=== PATIENT | female | born 1995 | race African-American/Black ===

== ENCOUNTER 2019-04-07 13:30 | Emergency (ER) | payer MEDICAID ==
[~2019-04-07] VITALS: Ht 160 cm; Wt 48.0 kg
[2019-04-07] MEDS ORDERED: LIDOCAINE HCL/PF 1% 10 MG/ML 5ML VIAL IJ ONE (14:15)
[2019-04-07] MEDS ORDERED: ACETAMINOPHEN 325MG TABLET PO ONE (14:15)
[2019-04-07] MEDS ORDERED: TETANUS, DIPHTHERIA, PERTUSSIS VAC/PF 0.5ML (>7YR OLD) IM ONE (14:15)
[2019-04-07 16:35] VITALS: BP 106/56
== END 2019-04-07 16:50 | disposition home or self-care (01) ==
LOC: ER 13:41
DX: S01.312A Laceration without foreign body of left ear, initial encounter (principal); S01.511A Laceration without foreign body of lip, initial encounter; S80.01XA Contusion of right knee, initial encounter; S60.222A Contusion of left hand, initial encounter; S60.212A Contusion of left wrist, initial encounter; G40.909 Epilepsy, unspecified, not intractable, without status epilepticus; V03.10XA Pedestrian on foot injured in collision with car, pick-up truck or van in traffic accident, initial encounter; Y93.89 Activity, other specified; Y92.488 Other paved roadways as the place of occurrence of the external cause
CPT/HCPCS: 12011; 70450; 73110; 73130; 73560; 90471; 90715; 99284; J3490; Z7610